=== PATIENT | female | born 1950 | race Caucasian/White ===

== ENCOUNTER → 2024-03-04 | Outpatient (CLI) | payer MEDICARE, BC ==
[~2024-03-04] MED LIST: DENOSUMAB 60 MG/ML 1 ML SYRINGE SQ ONE
== END ==
LOC: PROCWHC3 12:23
PROVIDERS: ATTEND Family Medicine
DX: M81.0 Age-related osteoporosis without current pathological fracture (principal)
CPT/HCPCS: 96372

== ENCOUNTER → 2024-05-17 | Outpatient (CLI) | payer MEDICARE, BC ==
--- NOTE | 2024-05-17 12:13 | CA ---
Exercise Stress Test Report Name: Jennifer Jeffries Exam Date: 05/17/2024 10:02 Exam Location: [place] Stress Ht (in): 62 Wt (lb): 130 BSA: 1.59 Ordering Phys: Keyana Godoy MD Referring Phys: Keyana Godoy MD Technologist: Damon Solorzano Age: 73 Gender: F : 1950 Procedure CPT: Indications: R06.09 Other forms of dyspnea ICD-10 Codes: Patient History: DIFFICULTY IN BREATHING, HYPERCHOLESTEROLEMIA, ASTHMA Medications: MONTELUKAST, LEVOTHYROXINE, OMEPRAZOLE Meds past 24 hrs: Pretest Chest Pain: STRESS TEST Johann Protocol Exercise Duration (min:sec): 04:[address] Depressions (mm): Angina Score: Richards Score: Resting HR (bpm): 89 Peak HR (bpm): 126 Resting BP (mmHg): 136 / 79 Peak BP (mmHg): 205 / 93 MPHR: 146 Target HR: 124 % MPHR: 86 METS: 6.1 Total Dose: Peak Dose: Atropine: Double Product: 74193 BP Response: Stress Termination: TARGET HR REACHED/MAX EXERTION Stress Symptoms: DIFFICULTY IN BREATHING Stress Summary: ECG ANALYSIS Resting ECG: Stress ECG: CONCLUSIONS Baseline EKG revealed a normal sinus rhythm with minor nonspecific T-wave flattening. Patient walked on a standard Johann protocol for 4 minutes 3 seconds and achieved a maximum heart rate of 126 bpm which is 86% of predicted maximum heart rate. Resting blood pressure was 136/79 and peak blood pressure was 205/93. Patient had shortness of breath but no anginal symptoms. There was a lot of baseline artifact making it difficult to interpret There were no EKG changes to indicate ischemia when EKG was cleared 2 minutes into recovery. Limited exercise capacity with a lot of artifact but no clearcut ischemia no anginal symptoms Dr. Miguel A Go MD (Electronically Signed) Final Date: 17 May 2024 12:12
== END | disposition home or self-care (01) ==
LOC: RADNMMAIN 09:19
PROVIDERS: ATTEND Family Medicine
DX: R06.09 Other forms of dyspnea (principal)
CPT/HCPCS: 93017